=== PATIENT | female | born 1955 | race Caucasian/White ===

== ENCOUNTER 2016-09-19 20:26 | Observation (INO) | payer OTHER ==
[~2016-09-19] VITALS: Ht 167.6 cm; Wt 129.5 kg
[~2016-09-19 20:26] MED LIST: ADVIL,NUPRIN,M200 MG PO; AMBIEN10 MG PO; AMITRIPTYLINE H25 MG PO; ASPIR 8181 M1 PO; AUGMENTIN500 MG PO; CALAN120 MG PO; CARVEDILOL12.5 MG PO; CELEXA10 MG PO; CHLORTABS4 MG PO; CITALOPRAM HBR10 MG PO; CLARITIN-D 121 EACH PO; CLONAZEPAM0.5 MG PO; CRANBERRY300 MG PO; CRESTOR20 MG PO; CRESTOR40 MG PO; DIFLUCAN150 MG PO; ELIQUIS5 MG PO; FLONASE16 G1 ALT NARES; FLONASE16 G1 BOTH NARES; FLORASTOR250 MG PO; FLUNISOLIDE25 ML BOTH NARES; FUROSEMIDE20 MG PO; FUROSEMIDE40 MG PO; HYDROCODONE CO120 ML PO; HYDROMET SYRUP480 ML PO; LIDOCAINE700 MG TD; LITE COAT ASPI325 M1 PO; METFORMIN HCL500 MG PO; MYLICON,MYLANTA80 MG PO; POTASSIUM-9999 MG PO; PRINIVIL10 MG PO; PRINIVIL20 MG PO; PROVENTIL2.5 MG/3 M IH; PYRIDIUM200 MG PO; RANITIDINE HCL150 M1 PO; SENNA PLUS TAB1 EACH PO; TYLENOL REGULA325 MG PO; ULTRAM50 MG PO; VERAMYST10 GM BOTH NARES; VERAPAMIL HCL120 MG PO; WELLBUTRIN75 MG PO; ZITHROMAX Z-PA250 MG PO; ZOFRAN4 MG/2 ML IV; Zeasorb Antifungal T TP
[2016-09-19 21:07] LABS: MCH 31.3 PG (29.0-34.0); MCHC 33.8 G/DL (30.0-36.0); MCV 92.4 FL (83-99); MEAN PLAT.VOLUME 9.7 uM^3 (9.5-12.4); PLATELET COUNT 125 K/uL (156-360); RBC DIS.WIDTH-CV 12.1 % (11.8-14.6); RBC DIS.WIDTH-SD 41.2 % (39-53); RED BLOOD COUNT 4.22 M/uL (3.80-5.20); WHITE BLOOD COUNT 5.2 K/uL (4.1-10.2)
[2016-09-19 21:18] LABS: CHLORIDE 108 mEq/L (99-109); POTASSIUM 3.6 mEq/L (3.7-5.4); SODIUM 143 mEq/L (136-147)
[2016-09-19 21:19] LABS: GLUCOSE 146 mg/dL (70-99)
[2016-09-19 21:21] LABS: ANION GAP 10 MEQ/L (2-14)
[2016-09-19 21:23] LABS: GFR ESTIMATE (CALCULATED) > 59 mL/min/
[2016-09-19 21:24] LABS: UREA NITROGEN (BUN) 19 mg/dL (9-23)
[2016-09-19 21:30] LABS: TROP-I INTERPRETATION NEGATIVE; TROPONIN-I < 0.01 ng/mL (0.0-0.30)
[2016-09-19 23:14] LABS: INFLUENZA A VIRAL ANTIGEN NEGATIVE; INFLUENZA B VIRAL ANTIGEN NEGATIVE
[2016-09-20] MEDS ORDERED: POTASSIUM CHLO20 ME1 PO (01:18)
[2016-09-20] MEDS ORDERED: ALPRAZOLAM0.25 M2 PO (01:18)
[2016-09-20] MEDS ORDERED: VIIBRYD10 MG PO (01:19)
[2016-09-20] MEDS ORDERED: TUMS500 MG PO (01:19)
[2016-09-20] MEDS ORDERED: MUCINEX1200 MG PO (01:20)
[2016-09-20] MEDS ORDERED: VISINE A.C300 DROP/1 BOTH EYES (01:20)
[2016-09-20] MEDS ORDERED: SALONPAS PAIN118 ML TP (01:21)
[2016-09-20 03:24] LABS: TROP-I INTERPRETATION NEGATIVE; TROPONIN-I < 0.01 ng/mL (0.0-0.30)
[2016-09-20 03:50] VITALS: BP 136/65
[2016-09-20 06:41] LABS: HEMATOCRIT 35.7 % (36.0-46.0); MCH 31.3 PG (29.0-34.0); MCHC 33.9 G/DL (30.0-36.0); MCV 92.2 FL (83-99); MEAN PLAT.VOLUME 10.4 uM^3 (9.5-12.4); PLATELET COUNT 117 K/uL (156-360); RBC DIS.WIDTH-CV 12.2 % (11.8-14.6); RBC DIS.WIDTH-SD 40.8 % (39-53); RED BLOOD COUNT 3.87 M/uL (3.80-5.20); WHITE BLOOD COUNT 4.8 K/uL (4.1-10.2)
[2016-09-20 07:12] LABS: ALKALINE PHOSPHATASE 61 IU/L (3-129); ANION GAP 11 MEQ/L (2-14); CHLORIDE 106 MEQ/L (99-109); GFR ESTIMATE (CALCULATED) > 59 mL/min/; GLUCOSE 157 mg/dL (70-99); SAMPLE HEMOLYSIS CHECK 1; SAMPLE ICTERIC CHECK 0; SAMPLE LIPEMIA CHECK 0; SODIUM 141 MEQ/L (136-147); UREA NITROGEN (BUN) 17 mg/dL (9-23)
[2016-09-20 07:15] LABS: POTASSIUM 3.7 MEQ/L (3.7-5.4); TOTAL BILIRUBIN 0.5 MG/DL (0.0-1.0)
[2016-09-20 07:24] VITALS: BP 148/67
[2016-09-20] MEDS ORDERED: NITROSTAT0.4 MG SL (09:47)
[2016-09-20 10:15] LABS: TROP-I INTERPRETATION NEGATIVE; TROPONIN-I < 0.01 ng/mL (0.0-0.30)
[2016-09-20 12:26] VITALS: BP 118/59
== END 2016-09-20 13:10 | disposition home or self-care (01) ==
LOC: EME 20:26 → EDOF 09-20 02:05 → 5WEST 09-20 03:47
PROVIDERS: Emergency Medicine; Internal Medicine
DX: R07.81 Pleurodynia (principal); E11.9 Type 2 diabetes mellitus without complications; I48.0 Paroxysmal atrial fibrillation; Z86.73 Personal history of transient ischemic attack (TIA), and cerebral infarction without residual deficits; I10 Essential (primary) hypertension; E78.5 Hyperlipidemia, unspecified; J45.909 Unspecified asthma, uncomplicated; E66.9 Obesity, unspecified; F31.9 Bipolar disorder, unspecified; Z79.01 Long term (current) use of anticoagulants
CPT/HCPCS: 71020; 80048; 80053; 82948; 84484; 85027; 87502; 93005; 99281; 99285; G0378; J1815; J7030

== ENCOUNTER 2016-12-28 19:28 | Observation (INO) | payer OTHER ==
[~2016-12-28] VITALS: Ht 170.2 cm; Wt 127.9 kg
[~2016-12-28 19:28] MED LIST changes: +ALPRAZOLAM0.25 M2 PO; +MUCINEX1200 MG PO; +NITROSTAT0.4 MG SL; +POTASSIUM CHLO20 ME1 PO; +SALONPAS PAIN118 ML TP; +TUMS500 MG PO; +VIIBRYD10 MG PO; +VISINE A.C300 DROP/1 BOTH EYES
[2016-12-28 20:00] LABS: HEMATOCRIT 39.9 % (36.0-46.0); MCH 30.9 PG (29.0-34.0); MCHC 33.6 G/DL (30.0-36.0); MCV 92.1 FL (83-99); MEAN PLAT.VOLUME 9.7 uM^3 (9.5-12.4); PLATELET COUNT 115 K/uL (156-360); RBC DIS.WIDTH-CV 12.6 % (11.8-14.6); RBC DIS.WIDTH-SD 42.5 % (39-53); RED BLOOD COUNT 4.33 M/uL (3.80-5.20); WHITE BLOOD COUNT 5.8 K/uL (4.1-10.2)
[2016-12-28 20:14] LABS: CHLORIDE 106 mEq/L (99-109); POTASSIUM 3.8 mEq/L (3.7-5.4)
[2016-12-28 20:15] LABS: SODIUM 140 mEq/L (136-147)
[2016-12-28 20:16] LABS: GLUCOSE 98 mg/dL (70-99)
[2016-12-28 20:18] LABS: ANION GAP 10 MEQ/L (2-14)
[2016-12-28 20:20] LABS: GFR ESTIMATE (CALCULATED) > 59 mL/min/
[2016-12-28 20:21] LABS: UREA NITROGEN (BUN) 21 mg/dL (9-23)
[2016-12-28 20:23] LABS: TROP-I INTERPRETATION NEGATIVE; TROPONIN-I < 0.01 ng/mL (0.0-0.30)
[2016-12-28] MEDS ORDERED: VITAMIN E1000 UNI1 PO (22:45)
[2016-12-28] MEDS ORDERED: RANITIDINE HCL150 M1 PO (22:45)
[2016-12-28] MEDS ORDERED: OMEGA-31000 M1 PO (22:46)
[2016-12-28] MEDS ORDERED: B-COMPLEX-VITA1 EACH PO (22:46)
[2016-12-28] MEDS ORDERED: K-DUR10 MEQ PO (22:46)
[2016-12-28] MEDS ORDERED: DEPAKOTE ER500 MG PO (22:47)
[2016-12-28] MEDS ORDERED: CEFTIN500 MG PO (22:47)
[2016-12-28] MEDS ORDERED: MUCUS RELIEF400 MG PO (22:47)
[2016-12-28] MEDS ORDERED: DEPAKOTE500 MG PO (22:48)
[2016-12-28] MEDS ORDERED: WELLBUTRIN XL150 MG PO (22:48)
[2016-12-29 02:01] VITALS: BP 140/65
[2016-12-29 03:10] LABS: HDL CHOLESTEROL 41 MG/DL (Desirable>=50); LDL CHOLESTEROL 22 mg/dL (Desirable<100); NON-HDL CHOLESTEROL 43 mg/dL (Desirable<160); SAMPLE HEMOLYSIS CHECK 0; SAMPLE ICTERIC CHECK 0; SAMPLE LIPEMIA CHECK 0; TOTAL CHOLESTEROL 84 mg/dL (Desirable<200); TRIGLYCERIDES 103 MG/DL (Normal: <150)
[2016-12-29 04:15] VITALS: BP 129/70
[2016-12-29 06:17] LABS: METH RESISTANT S AUREUS PCR NEGATIVE (NEGATIVE); PROBE CHECK PASS; SPECIMEN PROCESSING CONTROL PASS
[2016-12-29 07:10] VITALS: BP 125/60
[2016-12-29 09:07] LABS: POINT-OF-CARE METER ID UU14162513
[2016-12-29 12:00] VITALS: BP 143/76
[2016-12-29] MEDS ORDERED: LEVETIRACETAM500 MG PO ×4 (12:45→14:04)
== END 2016-12-29 15:08 | disposition home or self-care (01) ==
LOC: EME 19:28 → EDOF 12-29 00:08 → 5WEST 12-29 01:36
PROVIDERS: Emergency Medicine; Hospitalist
DX: R20.0 Anesthesia of skin (principal); R07.89 Other chest pain; R56.9 Unspecified convulsions; F41.9 Anxiety disorder, unspecified; E11.9 Type 2 diabetes mellitus without complications; I10 Essential (primary) hypertension; I48.91 Unspecified atrial fibrillation; I69.398 Other sequelae of cerebral infarction; R51 Headache; D64.9 Anemia, unspecified; F31.9 Bipolar disorder, unspecified
CPT/HCPCS: 70450; 70551; 71020; 80048; 80061; 82948; 84484; 85027; 87641; 93005; 99281; 99285; G0378; J1644

== ENCOUNTER 2017-10-28 21:55 | Emergency (ER) | payer OTHER ==
[~2017-10-28] VITALS: Ht 170.2 cm; Wt 134.0 kg
[~2017-10-28 21:55] MED LIST changes: +B-COMPLEX-VITA1 EACH PO; +CEFTIN500 MG PO; +DEPAKOTE ER500 MG PO; +DEPAKOTE500 MG PO; +K-DUR10 MEQ PO; +LEVETIRACETAM500 MG PO; +MUCUS RELIEF400 MG PO; +OMEGA-31000 M1 PO; +VITAMIN E1000 UNI1 PO; +WELLBUTRIN XL150 MG PO
[2017-10-28] MEDS ORDERED: PERCOCET 5/31 TABLET PO (23:26)
[2017-10-29] MEDS ORDERED: ZOFRAN4 MG PO (00:13)
[2017-10-29] MEDS ORDERED: NORCO 5/3251 TABLET PO (00:13)
[2017-10-29 00:27] VITALS: BP 140/86
== END 2017-10-29 00:28 | disposition home or self-care (01) ==
LOC: EME → EDBD 21:55 → EME 10-29 00:28
DX: S42.252A Displaced fracture of greater tuberosity of left humerus, initial encounter for closed fracture (principal); W18.30XA Fall on same level, unspecified, initial encounter; Y93.K1 Activity, walking an animal; Z85.9 Personal history of malignant neoplasm, unspecified; I11.0 Hypertensive heart disease with heart failure; I50.9 Heart failure, unspecified; E11.9 Type 2 diabetes mellitus without complications; J44.9 Chronic obstructive pulmonary disease, unspecified; K21.9 Gastro-esophageal reflux disease without esophagitis; M79.7 Fibromyalgia; F41.9 Anxiety disorder, unspecified; F32.9 Major depressive disorder, single episode, unspecified; Z79.84 Long term (current) use of oral hypoglycemic drugs; Z79.01 Long term (current) use of anticoagulants; Z86.73 Personal history of transient ischemic attack (TIA), and cerebral infarction without residual deficits; Z87.442 Personal history of urinary calculi; Z90.49 Acquired absence of other specified parts of digestive tract; Z88.5 Allergy status to narcotic agent; Z88.2 Allergy status to sulfonamides; Z88.0 Allergy status to penicillin; Z88.1 Allergy status to other antibiotic agents
CPT/HCPCS: 73030; 99281; 99285; J2060; J3010

== ENCOUNTER 2017-11-02 00:02 | Emergency (ER) | payer OTHER ==
[~2017-11-02] VITALS: Ht 170.2 cm; Wt 135.5 kg
[~2017-11-02 00:02] MED LIST changes: +NORCO 5/3251 TABLET PO; +PERCOCET 5/31 TABLET PO; +ZOFRAN4 MG PO
[2017-11-02] MEDS ORDERED: PERCOCET 5/31 TABLET PO (01:35)
[2017-11-02 01:53] VITALS: BP 00/0
== END 2017-11-02 01:57 | disposition home or self-care (01) ==
LOC: EME 00:02
DX: S42.202A Unspecified fracture of upper end of left humerus, initial encounter for closed fracture (principal); I50.9 Heart failure, unspecified; I11.0 Hypertensive heart disease with heart failure; Z86.73 Personal history of transient ischemic attack (TIA), and cerebral infarction without residual deficits; Z87.442 Personal history of urinary calculi; M79.7 Fibromyalgia; K21.9 Gastro-esophageal reflux disease without esophagitis; F41.9 Anxiety disorder, unspecified; F32.9 Major depressive disorder, single episode, unspecified; E11.9 Type 2 diabetes mellitus without complications; J44.9 Chronic obstructive pulmonary disease, unspecified; Z79.84 Long term (current) use of oral hypoglycemic drugs; Z88.0 Allergy status to penicillin; Z88.2 Allergy status to sulfonamides; Z88.5 Allergy status to narcotic agent; Z90.49 Acquired absence of other specified parts of digestive tract
CPT/HCPCS: 99281; 99284